=== PATIENT | male | born 1975 | race Caucasian/White ===

== ENCOUNTER → 2023-10-15 | Outpatient (CLI) | payer BC ==
--- NOTE | 2023-10-16 07:28 | XR ---
EXAMINATION TYPE: XR shoulder complete LT DATE OF EXAM: 10/15/2023 CLINICAL HISTORY: pain COMPARISON: NONE TECHNIQUE: Three views of the left shoulder are obtained. FINDINGS: There is no acute fracture/dislocation evident. Large calcification in the region of the i nsertion of the rotator cuff likely reflects rotator cuff calcific tendinopathy. Additional calcifica tion at the proximal left humeral diaphysis. The acromioclavicular and glenohumeral joint spaces appe ar within normal limits. The visualized ribs are intact and unremarkable. IMPRESSION: 1. There is no acute fracture or dislocation. ICD 10 NO FRACTURE, INITIAL EVALUATION
--- NOTE | 2023-10-16 07:31 | XR ---
EXAMINATION TYPE: XR forearm LT DATE OF EXAM: 10/15/2023 CLINICAL HISTORY: pain TECHNIQUE: Frontal and lateral images of the left forearm are obtained. COMPARISON: None. FINDINGS: There is no acute fracture/dislocation evident. The joint spaces appear within normal limi ts. The overlying soft tissue appears unremarkable. IMPRESSION: There is no acute fracture or dislocation. ICD 10 NO FRACTURE, INITIAL EVALUATION
== END | disposition home or self-care (01) ==
LOC: RADXRYALE 16:30
PROVIDERS: ATTEND Family Medicine
DX: M79.602 Pain in left arm (principal); M25.512 Pain in left shoulder